=== PATIENT | male | born 1985 | race Hispanic/Latino ===

== ENCOUNTER 2018-02-10 07:19 | Emergency (ER) | payer SELFPAY ==
--- NOTE | 2018-02-10 08:52 | RAD ---
CHEST 2 VIEWS: Date: 02/10/18 HISTORY: Cough and chest pain. COMPARISON: None. FINDINGS: The lungs are clear. No pneumothorax or effusion. Cardiac silhouette and mediastinal contours are wit hin normal limits. No acute osseous abnormality. IMPRESSION: No acute intrathoracic abnormality. POS: H
--- NOTE | 2018-02-12 15:28 | EKG ---
Test Reason : Blood Pressure : / mmHG Vent. Rate : 076 BPM Atrial Rate : 076 BPM P-R Int : 154 ms QRS Dur : 086 ms QT Int : 362 ms P-R-T Axes : 043 051 041 degrees QTc Int : 407 ms Normal sinus rhythm Normal ECG Confirmed by PIEDAD THOMPSON, MAKAYLA ([id number]), book or script editor LU AARON ([id number]) on 02/12/2018 3:28:03 PM Referred By: Confirmed By:MAKAYLA HERBERT MD
== END 2018-02-10 08:51 | disposition home or self-care (01) ==
LOC: ERS 07:19
DX: J06.9 Acute upper respiratory infection, unspecified (principal); F17.200 Nicotine dependence, unspecified, uncomplicated
CPT/HCPCS: 71046; 93005

== ENCOUNTER 2020-02-01 08:59 | Emergency (ER) | payer SELFPAY ==
[2020-02-01] MEDS ORDERED: Iopamidol 370 76% 100 ML VIAL ONE (10:09)
[2020-02-01 10:20] LABS: ALT (SGPT) 67 U/L (8-55); AST (SGOT) 44 U/L (5-34); Albumin 3.2 g/dL (3.5-5.0); Alkaline Phosphatase 152 U/L (40-110); Anion Gap 15 mmol/L (10-20); BUN (Urea Nitrogen) 11 mg/dL (8.9-20.6); Calc. Creatinine Clearance 0 mL/min (70-130); Calcium 8.5 mg/dL (7.8-10.44); Carbon Dioxide 26 mmol/L (22-29); Chloride 100 mmol/L (98-107); Estimated GFR-MDRD Greater than 90; Globulin 4.3 g/dL (2.4-3.5); Glucose 125 mg/dL (70-105); Potassium 4.1 mmol/L (3.5-5.1); Protein, Total 7.5 g/dL (6.0-8.3); Sodium 137 mmol/L (136-145)
--- NOTE | 2020-02-01 10:26 | RAD ---
PORTABLE CHEST: Date: 02/01/2020 HISTORY: COVID-positive. Cough. Shortness of breath. COMPARISON: 02/10/2018. FINDINGS: There are new confluent patchy peripheral infiltrates throughout both lungs consistent with diffuse C OVID pneumonia. IMPRESSION: Bilateral infiltrates. POS: OFF
[2020-02-01 10:30] LABS: #Eosinphils 0.1 thou/uL (0.0-0.7); #Lymphocytes 1.1 thou/uL (1.20-3.40); #Monocytes 0.9 thou/uL (0.11-0.59); #Neutrophils 6.7 thou/uL (1.40-6.50); %Basophils 0.2 % (0.0-1.0); %Eosinophils 1.7 % (0.0-10.0); %Lymphocytes 12.2 % (21.0-51.0); %Monocytes 9.9 % (0.0-10.0); %Neutrophils 76.1 % (42.0-75.0); Mean Corpuscular HGB CONC 34.3 g/dL (32.0-36.0); Mean Corpuscular Hemoglobin 31.3 pg (27.0-31.0); Mean Corpuscular Volume 91.3 fL (78.0-98.0); Mean Platelet Volume 6.7 fL (7.4-10.4); Platelet Count 595 thou/uL (130-400); RBC Distribution Width 11.7 % (11.5-14.5); Red Blood Cell (RBC) Count 4.47 mill/uL (4.70-6.10); White Blood Cell (WBC) Count 8.8 thou/uL (4.8-10.8)
[2020-02-01] MEDS ORDERED: Dexamethasone 10 MG/ML VIAL ONE (10:30)
[2020-02-01] MEDS ORDERED: Ketorolac Tromethamine 30 MG/ML VIAL ONE (10:30)
[2020-02-01] MEDS ORDERED: Acetaminophen/Codeine 30-300mg Tablet ONE (12:08)
--- NOTE | 2020-02-01 12:12 | CT ---
CT PULMONARY ANGIOGRAM WITH IV CONTRAST AND 3D MIP RECONSTRUCTIONS: Date: 02/01/2020 PROVIDED CLINICAL HISTORY: Shortness of breath, cough, COVID-positive. FINDINGS: There is no evidence for central or segmental pulmonary embolus. There is extensive bilateral lung consolidation. There is no pleural fluid or pneumothorax apparent. The airway appears patent and of normal caliber. Prominent by number but not pathologically enlarged mediastinal lymph nodes are seen. The visualized portions of the upper abdomen appear unremarkable. The osseous structures demonstrate no concerning lytic or blastic lesions. IMPRESSION: 1. No evidence for central or segmental pulmonary embolus. 2. Extensive bilateral lung consolidation, compatible with pneumonia. POS: BRANDON
== END 2020-02-01 14:15 | disposition home or self-care (01) ==
LOC: ERS 08:59
DX: U07.1 COVID-19 (principal); J12.89 Other viral pneumonia; Z87.891 Personal history of nicotine dependence
CPT/HCPCS: 36415; 71045; 71275; 80053; 85025; 96374; 96375; J1100; J1885; Q9967

== ENCOUNTER 2022-04-24 18:12 | Emergency (ER) | payer OTHER, SELFPAY ==
[2022-04-24] MEDS ORDERED: HYDROcodone/Acetaminophen 7.5/325 mg Tablet ONE (21:03)
[2022-04-24] MEDS ORDERED: Ibuprofen 200 MG TAB ONE (21:03)
[2022-04-24 22:02] LABS: #Basophils 0.1 thou/uL (0.0-0.2); #Eosinphils 0.4 thou/uL (0.0-0.7); #Lymphocytes 3.5 thou/uL (1.20-3.40); #Monocytes 0.7 thou/uL (0.11-0.59); #Neutrophils 6.1 thou/uL (1.40-6.50); %Basophils 0.8 % (0.0-1.0); %Eosinophils 3.3 % (0.0-10.0); %Lymphocytes 32.8 % (21.0-51.0); %Monocytes 6.7 % (0.0-10.0); %Neutrophils 56.4 % (42.0-75.0); Hemoglobin 15.8 g/dL (14.0-18.0); Mean Corpuscular HGB CONC 34.7 g/dL (32.0-36.0); Mean Corpuscular Hemoglobin 31.9 pg (27.0-31.0); Mean Platelet Volume 6.9 fL (7.4-10.4); Platelet Count 319 10x3/uL (130-400); RBC Distribution Width 11.7 % (11.5-14.5); Red Blood Cell (RBC) Count 4.96 mill/uL (4.70-6.10); White Blood Cell (WBC) Count 10.7 10x3/uL (4.8-10.8)
== END 2022-04-24 21:10 | disposition home or self-care (01) ==
LOC: ERS 18:12
DX: S61.011D Laceration without foreign body of right thumb without damage to nail, subsequent encounter (principal); W45.8XXD Other foreign body or object entering through skin, subsequent encounter
CPT/HCPCS: 36415; 85025; 85652